=== PATIENT | male | born 1975 | race African-American/Black ===

== ENCOUNTER 2016-10-11 05:57 | Emergency (ER) | payer OTHER ==
[~2016-10-11] VITALS: Ht 188 cm; Wt 99.8 kg
[~2016-10-11 05:57] MED LIST: ALBUTEROL SULF8.5 GM INH; ALBUTEROL2.5 MG/3 M HHN; AZITHROMYCIN250 MG ORAL; KEFLEX500 MG ORAL; LEVAQUIN500 MG ORAL; PREDNISONE20 MG ORAL; PROAIR HFA8.5 GM INH
[2016-10-11] MEDS ORDERED: Albuterol ud Inhalation ONE (06:21)
[2016-10-11] MEDS ORDERED: Ipratropium 0.02% Inh Soln 2.5ml UD ONE (06:21)
[2016-10-11] MEDS ORDERED: PredniSONE 20mg tab ONE (06:22)
[2016-10-11] MEDS ORDERED: ALBUTEROL SULF8.5 GM INH (06:26)
[2016-10-11] MEDS ORDERED: PREDNISONE20 MG ORAL (06:26)
--- NOTE | 2016-10-11 06:27 | Emergency Room Report ---
History of Present Illness General Chief Complaint: Asthma Source: Patient Present Illness HPI This is a 41-year-old male with a history of asthma. He also smokes methamphetamine. Last use was yesterday. He presents with chief complaint of short of breath. Onset for last 3 or 4 days. No fever or chills no nausea no vomiting. Said his inhaler is not helping. Denies any other complaint. He was sitting in the waiting room for over an hour before he finally checked in. Allergies: Coded Allergies: No Known Allergies (Verified Allergy, Mild, 03/04/09) Patient History Past Medical History: see triage record, old chart reviewed, asthma Past Surgical History: none Pertinent Family History: none Social History: Reports: drug use, smoking Immunizations: other Reviewed Nursing Documentation: PMH: Agreed, PSxH: Agreed Nursing Documentation-PMH Past Medical History: No History, Except For Hx Hypertension: Yes Hx Asthma: Yes Hx Diabetes: No Review of Systems Eye: Denies: blurred vision, eye pain ENT: Denies: ear pain, nose congestion, throat swelling Respiratory: Reports: cough, shortness of breath, wheezing Cardiovascular: Denies: chest pain, palpitations Gastrointestinal: Denies: abdominal pain, diarrhea, nausea, vomiting Musculoskeletal: Denies: back pain, joint pain Skin: Denies: rash Neurological: Denies: headache, numbness Endocrine: Denies: increased thirst, increased urine Hematologic/Lymphatic: Denies: easy bruising All Other Systems: negative except mentioned in HPI Physical Exam Vital Signs Date Time Temp Pulse Resp B/P Pulse Ox O2 Delivery O2 Flow Rate FiO2 10/11/16 06:13 98.2 75 17 155/104 96 Room Air vitals with high blood pressure Sp02 EP Interpretation: reviewed, normal General Appearance: well appearing, no apparent distress, alert, other - Sleeping Head: normocephalic, atraumatic Eyes: bilateral eye EOMI, bilateral eye PERRL ENT: hearing grossly normal, normal pharynx Neck: full range of motion, supple, no meningismus Respiratory: chest non-tender, wheezing Cardiovascular #1: regular rate, rhythm, no murmur Gastrointestinal: normal bowel sounds, non tender, no mass, no organomegaly, no bruit, non-distended Musculoskeletal: back normal, gait/station normal, normal range of motion Psychiatric: mood/affect normal Skin: warm/dry Medical Decision Making Diagnostic Impression: Primary Impression: Asthma attack Additional Impression: Methamphetamine abuse ER Course Patient presents with wheezing from asthma. Exacerbated by drug use. Lungs clear after pretreatment. We'll discharge home. Last Vital Signs Date Time Temp Pulse Resp B/P Pulse Ox O2 Delivery O2 Flow Rate FiO2 10/11/16 06:18 75 17 Room Air 10/11/16 06:13 98.2 155/104 96 Status: improved Disposition: HOME, SELF-CARE Condition: Stable Scripts Prednisone* (PREDNISONE*) 20 Mg Tablet 60 MG ORAL DAILY, #12 TAB Prov: ROSANNE HERNANDEZ M.D. 10/11/16 Albuterol Sulfate* (ALBUTEROL SULFATE MDI*) 8.5 Gm Hfa.aer.ad 2 PUFF INH Q4H Y for cough/wheezing, #1 EA 0 Refills Prov: ROSANNE HERNANDEZ M.D. 10/11/16 Patient Instructions: Asthma, Adult Additional Instructions: Stop using drugs. Go to rehabilitation. Followup with your Dr. in 7 days. Return if worse. ROSANNE HERNANDEZ M.D. Oct 11, 2016 06:27
[2016-10-11] MEDS ORDERED: Albuterol ud Inhalation HHN ONE (06:30)
[2016-10-11] MEDS ORDERED: PredniSONE 20mg tab ORAL ONE (06:30)
[2016-10-11] MEDS ORDERED: Ipratropium 0.02% Inh Soln 2.5ml UD HHN ONE (06:30)
[2016-10-11 07:00] VITALS: BP 154/99
[2016-10-11 07:05] VITALS: BP 154/99
== END 2016-10-11 07:05 | disposition home or self-care (01) ==
LOC: EMR 06:20
DX: J45.901 Unspecified asthma with (acute) exacerbation (principal); F15.90 Other stimulant use, unspecified, uncomplicated; I10 Essential (primary) hypertension; F17.200 Nicotine dependence, unspecified, uncomplicated
CPT/HCPCS: 94640; 94664; 99284

== ENCOUNTER 2017-03-07 05:32 | Emergency (ER) | payer OTHER ==
[~2017-03-07] VITALS: Ht 188 cm; Wt 99.8 kg
[2017-03-07] MEDS ORDERED: Ipratropium 0.02% Inh Soln 2.5ml UD HHN ONE (05:45)
[2017-03-07] MEDS ORDERED: Albuterol ud Inhalation HHN ONE (05:45)
[2017-03-07] MEDS ORDERED: Solu-MEDROL 125mg Inj IVP ONE (05:45)
--- NOTE | 2017-03-07 05:49 | Emergency Room Report ---
History of Present Illness General Chief Complaint: Dyspnea/Respdistress Source: Patient (SRIRAM LUNA D.O.) Present Illness HPI Patient presents with complaints of shortness of breath He reports that he's been sick for about a week Today he was on a feel better however his mom did request him to go to the emergency room Patient has history of asthma Has increased wheezing Denies any recent travel denies any chest pain with this (SRIRAM LUNA D.O.) Allergies: Coded Allergies: No Known Allergies (Verified Allergy, Mild, 03/04/09) Patient History Past Medical History: see triage record Pertinent Family History: none Reviewed Nursing Documentation: PMH: Agreed, PSxH: Agreed (SRIRAM LUNA D.O.) Nursing Documentation-PMH Hx Hypertension: Yes Hx Asthma: Yes Hx Diabetes: No (SRIRAM LUNA D.O.) Review of Systems All Other Systems: negative except mentioned in HPI (SRIRAM LUNA D.O.) Physical Exam Vital Signs Date Time Temp Pulse Resp B/P (MAP) Pulse Ox O2 Delivery O2 Flow Rate FiO2 03/07/17 05:35 98.2 121 22 170/112 98 Room Air Sp02 EP Interpretation: reviewed, normal General Appearance: no apparent distress Head: normocephalic, atraumatic Eyes: bilateral eye PERRL, bilateral eye EOMI ENT: hearing grossly normal, normal pharynx, TMs + canals normal, uvula midline Neck: full range of motion, supple, no meningismus, no bony tend Respiratory: no retraction, no accessory muscle use, wheezing - bilaterally Cardiovascular #1: normal peripheral pulses, regular rate, rhythm, no edema, no gallop, no JVD, no murmur Gastrointestinal: normal bowel sounds, non tender, soft, no mass, no organomegaly, non-distended, no guarding, no hernia, no pulsatile mass, no rebound Genitourinary: no CVA tenderness Musculoskeletal: normal inspection Neurologic: oriented x3, responsive, beamer hand III-XII nml as tested, motor strength/ tone normal, sensory intact Psychiatric: mood/affect normal Skin: normal color, no rash, warm/dry, palpation normal Lymphatic: normal inspection, no adenopathy (SRIRAM LUNA D.O.) Medical Decision Making Diagnostic Impression: Primary Impression: Asthma attack Additional Impression: Cellulitis of left forearm ER Course Given the patient's history examined presentation patient was provided with breathing treatment X-ray imaging was obtained patient sounds significantly improved Patient stable for continued outpatient followup CBC normal Chemistry normal (SRIRAM LUNA D.O.) ER Course Please see above note. Patient is clear now. He has an infection on his L forearm. Tetanus is UTD. Bactrim and bacitracin ordered. Patient stable for outpatient observation and treatment. (Truong Dyer M.D.) Chest X-Ray Diagnostic Results Chest X-Ray Diagnostic Results : Chest X-Ray Ordered: Yes # of Views/Limited/Complete: 1 View Indication: Shortness of Breath EP Interpretation: Yes Interpretation: no consolidation, no effusion, no pneumothorax, other - hear size normal Impression: No acute disease Electronically Signed by: Sriram Luna DO (SRIRAM LUNA D.O.) Last Vital Signs Date Time Temp Pulse Resp B/P (MAP) Pulse Ox O2 Delivery O2 Flow Rate FiO2 03/07/17 05:43 120 18 Room Air 03/07/17 05:35 98.2 170/112 98 Status: improved (SRIRAM LUNA D.O.) Status: improved (Truong Dyer M.D.) Disposition: HOME, SELF-CARE Condition: Improved Scripts Bacitracin (Bacitracin) 28.4 Gm Oint...g. 1 APPLIC TOPIC BID, #20 GM Prov: Truong Dyer M.D. 03/07/17 Trimethoprim/Sulfamethoxazole 160/800* (BACTRIM DS TABLET*) 1 Each Tablet 1 TAB ORAL Q12H, #14 TAB 0 Refills Prov: Truong Dyer M.D. 03/07/17 Albuterol Sulfate* (ALBUTEROL SULFATE HHN*) 2.5 Mg/3 Ml Vial.neb 2.5 MG HHN Q4H Y for Shortness of Breath, #25 VIAL Prov: SRIRAM LUNA D.O. 03/07/17 Albuterol Sulfate* (ALBUTEROL SULFATE MDI*) 8.5 Gm Hfa.aer.ad 2 PUFF INH Q6H, #1 EA 0 Refills Prov: SRIRAM LUNA D.O. 03/07/17 Prednisone* (PREDNISONE*) 20 Mg Tablet 20 MG ORAL BID, #10 TAB Prov: SRIRAM LUNA D.O. 03/07/17 Referrals: [facility],REFERRING (PCP) Additional Instructions: Patient is provided with the discharge instructions notified to follow up with primary doctor in the next 2-3 days otherwise return to the er with any worsening symptoms. Please note that this report is being documented using DRAGON technology. This can lead to erroneous entry secondary to incorrect interpretation by the dictating instrument. SRIRAM LUNA D.O. Mar 07, 2017 05:49 Truong Dyer M.D. Mar 07, 2017 06:55
[2017-03-07] MEDS ORDERED: Levalbuterol Inh UD 1.25mg/0.5ml HHN ONE (06:00)
[2017-03-07] MEDS ORDERED: ALBUTEROL SULF8.5 GM INH (06:02)
[2017-03-07] MEDS ORDERED: PREDNISONE20 MG ORAL (06:02)
[2017-03-07] MEDS ORDERED: ALBUTEROL2.5 MG/3 M HHN (06:05)
[2017-03-07 06:16] LABS: BASOPHILS % (AUTO) 1.4 % (0.0-2.0); EOSINOPHILS % (AUTO) 4.5 % (0.0-3.0); LYMPHOCYTES % (AUTO) 26.8 % (20.0-45.0); MEAN CORPUSCULAR HEMOGLOBIN 27.6 PG (27.0-31.0); MEAN CORPUSCULAR HGB CONC 31.7 G/DL (32.0-36.0); MEAN CORPUSCULAR VOLUME 87 FL (80-99); MEAN PLATELET VOLUME 10.9 FL (6.5-10.1); MONOCYTES % (AUTO) 7.3 % (1.0-10.0); PLATELET COUNT 258 K/UL (150-450); RED BLOOD COUNT 5.62 M/UL (4.70-6.10); RED CELL DISTRIBUTION WIDTH 11.7 % (11.6-14.8); WHITE BLOOD COUNT 10.4 K/UL (4.8-10.8)
[2017-03-07 06:32] LABS: ANION GAP 6 mmol/L (5-15); CALCIUM 9.1 MG/DL (8.5-10.1); CARBON DIOXIDE 32 MMOL/L (21-32); CHLORIDE 102 MMOL/L (98-107); CREATININE 1.4 MG/DL (0.55-1.30); GLOMERULAR FILTRATION RATE > 60 mL/min (>60); POTASSIUM 3.6 MMOL/L (3.5-5.1); SODIUM 140 MMOL/L (136-145)
[2017-03-07] MEDS ORDERED: Bactrim DS (160mg/800mg) tab ORAL ONE (07:00)
[2017-03-07] MEDS ORDERED: Bacitracin Oint UD TOPIC ONE (07:00)
[2017-03-07] MEDS ORDERED: BACITRACIN15 GM TOPIC (07:02)
[2017-03-07] MEDS ORDERED: BACTRIM DS TAB1 EAC1 ORAL (07:02)
[2017-03-07 07:08] VITALS: BP 162/102
[2017-03-07 07:22] VITALS: BP 162/102
--- NOTE | 2017-03-07 16:21 | Diagnostic Imaging Report ---
Indication: SOB Technique: One view of the chest Comparison: 05/11/2015 Findings: Lungs and pleural spaces are clear. Heart size is normal. No significant interim change Impression: No acute process This agrees with the preliminary interpretation provided by the emergency room physician
== END 2017-03-07 07:23 | disposition home or self-care (01) ==
LOC: EMR 05:46
DX: J45.909 Unspecified asthma, uncomplicated (principal); L03.114 Cellulitis of left upper limb; I10 Essential (primary) hypertension
CPT/HCPCS: 36415; 71010; 80048; 85025; 94640; 94664; 96361; 96374; 99284; J2930; J7644